=== PATIENT | female | born 1960 | race Caucasian/White ===

== ENCOUNTER → 2017-05-28 | Outpatient (CLI) | payer BC ==
--- NOTE | 2017-05-28 09:25 | MR ---
EXAMINATION TYPE: MR knee RT wo con DATE OF EXAM: 05/28/2017 COMPARISON: Outside right knee x-ray May 11, 2017. HISTORY: Right knee pain, outer pain for 3 to 4 weeks after exercise injury per patient. TECHNIQUE: Multiplanar, multisequence images of the knee is performed without IV contrast. FINDINGS: MEDIAL MENISCUS: Anterior horn is intact without tear. There is triangular faint increased signal pos terior horn of medial meniscus does not extend to articular surface. LATERAL MENISCUS: Anterior and posterior horns are intact without tear. CRUCIATE LIGAMENTS: The posterior cruciate ligaments is intact. Anterior cruciate ligament appears no rmal at distal attachment. Midsegment is thickened with increased signal, proximal portion is not vis ualized. Complete tear is suspected. COLLATERAL LIGAMENTS: The medial collateral ligament and lateral collateral ligament complex are inta ct and unremarkable. Mild fluid signal surrounds lateral collateral ligament complex. EXTENSOR MECHANISM: Visualized quadriceps and patellar tendons are intact. Some increased signal dist al quadriceps tendon with surrounding fluid is noted. EFFUSION: No significant suprapatellar joint effusion. POPLITEAL CYST: There is moderate size popliteal/nelson cyst measuring 4.7 cm in diameter on sagittal image 8. TRICOMPARTMENT SPACES: Mild to moderate joint space loss patellofemoral compartment is seen. There is mild tricompartment spurring. CARTILAGE: Some mild fissuring and cartilaginous loss posterior patellar pole is present. BONE MARROW SIGNAL: There is heterogeneous increased T2 signal involving posterior lateral tibial alison teau extending towards proximal tibial meta-epiphysis. OTHER: No additional significant abnormality is appreciated. IMPRESSION: 1. Osseous contusion or bone marrow edema involving posterior lateral tibial plateau extending into p roximal tibia. 2. Probable complete ACL tear at proximal distal femoral attachment. 3. Moderate-sized popliteal cyst. 4. Mild distal quadriceps tendinitis. 5. Intrasubstance tear posterior horn of medial meniscus. 6. Mild LCL sprain injury. 7. Mild to borderline moderate tricompartment degenerative changes as detailed above.
== END | disposition home or self-care (01) ==
LOC: RADMRIMAIN 08:00
PROVIDERS: ATTEND Orthopaedic Surgery
DX: S83.241A Other tear of medial meniscus, current injury, right knee, initial encounter (principal); M71.22 Synovial cyst of popliteal space [Baker], left knee; M75.81 Other shoulder lesions, right shoulder; S83.421A Sprain of lateral collateral ligament of right knee, initial encounter

== ENCOUNTER → 2017-07-23 | Outpatient (CLI) | payer BC ==
[2017-07-23 08:11] LABS: EKG EKG PERFORMED
[2017-07-23 08:24] LABS: Basophils # (A) 0.1 k/uL (0-0.2); Basophils % (A) 2 %; CHCM 31.5; Eosinophils # (A) 0.3 k/uL (0-0.7); Eosinophils % (A) 4 %; HCT 43.2 % (34.0-46.0); HDW 2.36; HGB 13.6 gm/dL (11.4-16.0); Luc % (Auto) 2; Lymphocytes % (A) 33 %; MCH 31.2 pg (25.0-35.0); MCHC 31.5 g/dL (31.0-37.0); Mean Platelet Volume 8.6; Monocytes # (A) 0.4 k/uL (0-1.0); Monocytes % (A) 6 %; Neutrophils # (A) 3.3 k/uL (1.3-7.7); Neutrophils % (A) 54 %; RBC 4.36 m/uL (3.80-5.40); RDW 13.8 % (11.5-15.5)
[2017-07-23 08:40] LABS: Anion Gap 8 mmol/L; Carbon Dioxide 27 mmol/L (22-30); Chloride 105 mmol/L (98-107); Potassium 4.7 mmol/L (3.5-5.1); Sodium 140 mmol/L (137-145)
== END | disposition home or self-care (01) ==
LOC: LABPAT 07:28
PROVIDERS: ATTEND Orthopaedic Surgery
DX: Z01.818 Encounter for other preprocedural examination (principal); M23.91 Unspecified internal derangement of right knee
CPT/HCPCS: 80051; 85025; 93005